=== PATIENT | female | born 1990 | race American Indian/Alaskan Native ===

== ENCOUNTER 2017-09-20 12:19 | Emergency (ER) | payer OTHER ==
[2017-09-20 12:25] VITALS: BP 139/97
--- NOTE | 2017-09-20 13:10 | Emergency Department Report ---
Chief Complaint: Abdominal Pain Stated Complaint: ABDOMINAL PAIN Time Seen by Provider: 09/20/17 13:08 - HPI History of Present Illness: Patient is a 27-year-old active female who actually lives in [place] who presents with lower abdominal pain. Patient states 2 months ago she had a urinary tract infection but is not having any dysuria at this time. Patient states for the past 4 days she has had some mid abdominal tenderness as well as left lower quadrant tenderness. Patient denies any dysuria vaginal discharge vaginal bleeding. She has been constipated and has not had a bowel movement in this time frame. Patient denies any nausea vomiting and cough fever at this time - ROS Review of Systems: Review of systems is negative except for those elements in HPI - Exam Vital Signs: Vital Signs 09/20/17 12:22 Temperature 98.7 F Pulse Rate 66 Respiratory 16 Rate Blood Pressure 139/97 O2 Sat by Pulse 100 Oximetry Physical Exam: Focused physical exam abdomen is soft nontender no rebound or guarding is normal bowel sounds heart exam normal S1-S2 no murmurs gallops or rubs general exam patient is alert and oriented 3 MSE screening note: Focused history and physical exam performed. Due to findings the following was ordered: X-ray of the abdomen has been ordered as well as a UA urinalysis. We'll be ruling out urinary tract infection constipation versus obstruction ED Disposition for MSE Condition: Stable Instructions: Abdominal Pain (ED)
[2017-09-20 13:51] LABS: Bacteria,Urine 2+ /HPF (Negative); Bilirubin,Urine NEG (Negative); Blood,Urine NEG (Negative); Ketones,Urine TR mg/dL (Negative); Leukocyte Esterase,Urine MOD (Negative); Mucus,Urine 3+ /HPF; Nitrite,Urine NEG (Negative)
--- NOTE | 2017-09-20 14:40 | XRay Report ---
SUPINE KUB: History: Abdominal pain. The abdominal gas pattern is unremarkable. No masses or organomegaly is identified and there is no gross evidence of free air or fluid. No significant soft tissue calcifications are noted. IMPRESSION: Normal study.
--- NOTE | 2017-09-20 15:14 | Emergency Department Report ---
HPI - General Chief Complaint: Abdominal Pain Time Seen by Provider: 09/20/17 13:08 - HPI HPI: 27-year-old female presenting complaining of lower pelvic pain 4 days. Patient admits nausea but no vomiting. Signed patient was initially screened by Dr. Haile. She denies no other symptoms. States she would also like some contraceptive pills. See MSE note for full HPI ED Past Medical Hx - Past Medical History Previous Medical History?: No - Surgical History Past Surgical History?: No - Social History Smoking Status: Never Smoker Substance Use Type: None - Medications Home Medications: Home Medications Medication Instructions Recorded Confirmed Last Taken Type Ciprofloxacin HCl [Ciprofloxacin 500 mg PO Q12HR #14 tab 09/20/17 Unknown Rx TAB] Norgestimate-Ethinyl Estradiol 1 each PO DAILY 56 Days #56 tablet 09/20/17 Unknown Rx [Sprintec 28 Day Tablet] ED Review of Systems ROS: Stated complaint: ABDOMINAL PAIN Other details as noted in HPI Constitutional: denies: chills, fever Eyes: denies: eye pain, eye discharge, vision change ENT: denies: ear pain, throat pain Respiratory: denies: cough, shortness of breath, wheezing Cardiovascular: denies: chest pain, palpitations Endocrine: no symptoms reported Gastrointestinal: nausea. denies: abdominal pain, vomiting, diarrhea Genitourinary: denies: urgency, dysuria, frequency, hematuria, discharge Musculoskeletal: denies: back pain, joint swelling, arthralgia, myalgia Skin: denies: rash, lesions Neurological: denies: headache, weakness, numbness, paresthesias, confusion Psychiatric: denies: anxiety, depression Hematological/Lymphatic: denies: easy bleeding, easy bruising Physical Exam - Physical Exam Vital Signs: Vital Signs 09/20/17 12:22 Temperature 98.7 F Pulse Rate 66 Respiratory 16 Rate Blood Pressure 139/97 O2 Sat by Pulse 100 Oximetry Physical Exam: GENERAL: Alert and oriented x3, no apparent distress, Normal Gait, atraumatic. LUNGS: Symetrical with respiration, No wheezing, no rales or crackles, CTAB. HEART: S1, S2 present, regular rate and rhythm without murmur, no rubs, no gallops. Non tender to palpation ABDOMEN: No organomegaly was noted,Positive bowel sounds, soft, and non- distended. . Nontender to palpation on all Quadrants, NO CVA tenderness. BACK: Full range of motion, no spinal tenderness, nontender to palpation. ED Course Vital Signs 09/20/17 12:22 Temperature 98.7 F Pulse Rate 66 Respiratory 16 Rate Blood Pressure 139/97 O2 Sat by Pulse 100 Oximetry ED Medical Decision Making - Radiology Data Radiology results: report reviewed, image reviewed Ordering Physician: ABBY HAILE MD Date of Service: 09/20/17 Procedure(s): XR abdomen 1V ap Accession Number(s): [id number] cc: ABBY HAILE MD Fluoro Time In Minutes: SUPINE KUB: History: Abdominal pain. The abdominal gas pattern is unremarkable. No masses or organomegaly is identified and there is no gross evidence of free air or fluid. No significant soft tissue calcifications are noted. IMPRESSION: Normal study. Transcribed By: TTR Dictated By: TODD MEDEIROS JR, MD Electronically Authenticated By: TODD MEDEIROS JR, MD Signed Date/Time: 09/20/17 6996 - Medical Decision Making 27-year-old female presents with UTI ED course: Urine test, urinalysis, abdominal x-ray obtained. Impressions test negative, urinalysis positive for bacteria Abdomen x-ray negative I discussed all this findings with the patient. I discussed the patient will follow primary care physician or [facility]. I discussed patient I give referrals and follow-up. Chago's normal patient is acute distress. Critical care attestation.: If time is entered above; I have spent that time in minutes in the direct care of this critically ill patient, excluding procedure time. ED Disposition Clinical Impression: UTI (urinary tract infection) Qualifiers: Urinary tract infection type: acute cystitis Hematuria presence: with hematuria Qualified Code(s): N30.01 - Acute cystitis with hematuria Disposition: - TO HOME OR SELFCARE Is pt being admited?: No Does the pt Need Aspirin: No Condition: Stable Instructions: Oral Contraceptives (By mouth), Control Pills (ED), Urinary Tract Infection in Women (ED), Abdominal Pain (ED) Additional Instructions: Make sure to follow up with the primary care physician as discussed. Take all your medications as you've been prescribed. If you have any worsening symptoms or develop new symptoms please return to ED immediately. Prescriptions: Ciprofloxacin HCl [Ciprofloxacin TAB] 500 mg PO Q12HR #14 tab Norgestimate-Ethinyl Estradiol [Sprintec 28 Day Tablet] 1 each PO DAILY 56 Days #56 tablet Referrals: ELIZABETH CARRANZA MD [Primary Care Provider] - 3-5 Days AYAH KIRBY MD [Referring] - 3-5 Days [facility] [Outside] - 3-[address] [facility] [Outside] - 3-5 Days [facility] [Outside] - 3-5 Days Forms: Work/School Release Form(ED) Time of Disposition: 15:34
== END 2017-09-20 16:04 | disposition home or self-care (01) ==
LOC: ED 12:19
DX: N30.01 Acute cystitis with hematuria (principal)
CPT/HCPCS: 74000; 81001; 81025; 99283

== ENCOUNTER 2017-10-05 19:11 | Emergency (ER) | payer OTHER ==
[2017-10-05 21:15] LABS: Basophils % (Auto) 0.3 % (0.0-1.8); Eosinophils % (Auto) 0.1 % (0.0-4.3); Hematocrit 34.6 % (30.3-42.9); Hemoglobin 11.6 gm/dl (10.1-14.3); Lymphocytes % (Auto) 30.1 % (13.4-35.0); Mean Corpuscular HGB Conc 34 % (30-34); Mean Corpuscular Hemoglobin 29 pg (28-32); Mean Corpuscular Volume 86 fl (79-97); Monocytes # (Auto) 0.6 K/mm3 (0.0-0.8); Platelet Count 239 K/mm3 (140-440); Red Blood Count 4.04 M/mm3 (3.65-5.03); Red Cell Distribution Width 13.9 % (13.2-15.2)
[2017-10-05 21:25] LABS: Bilirubin,Urine NEG (Negative); Blood,Urine NEG (Negative); Color,Urine Yellow (Yellow); Mucus,Urine FEW /HPF; Nitrite,Urine NEG (Negative); Protein,Urine <15 mg/dL mg/dL (Negative); Urobilinogen,Urine < 2.0 mg/dL (<2.0)
[2017-10-05 21:37] LABS: Alanine Aminotransferase 8 units/L (7-56); Albumin 4.1 g/dL (3.9-5); BUN/Creatinine Ratio 13; Blood Urea Nitrogen 8 mg/dL (7-17); Hemolysis Index 17
[2017-10-06 03:50] VITALS: BP 138/95
== END 2017-10-06 07:37 | disposition left against medical advice (07) ==
LOC: ED 19:11
DX: R42 Dizziness and giddiness (principal); Z53.21 Procedure and treatment not carried out due to patient leaving prior to being seen by health care provider
CPT/HCPCS: 36415; 80053; 81001; 81025; 85025